=== PATIENT | male | born 1985 | race African-American/Black ===

== ENCOUNTER 2018-02-25 09:30 | Inpatient (IN) | payer MEDICAID, OTHER, SELFPAY ==
[~2018-02-25] VITALS: Ht 177.8 cm; Wt 73.0 kg
[~2018-02-25 09:30] MED LIST: OLAN10TA3 PO
[2018-02-25] MEDS ORDERED: HALOPERIDOL LACTATE 5 MG/ML VIAL ONE (09:34)
[2018-02-25] MEDS ORDERED: LORazepam 2 MG/ML VIAL ONE (09:34)
[2018-02-25] MEDS ORDERED: DiphenhydrAMINE HCL 50 MG/ML VIAL ONE (09:34)
[2018-02-25] MEDS ORDERED: HALOPERIDOL LACTATE 5 MG/ML VIAL IM ONE ×2 (09:35→16:15)
[2018-02-25] MEDS ORDERED: DiphenhydrAMINE HCL 50 MG/ML VIAL IM ONE ×2 (09:35→16:15)
[2018-02-25] MEDS ORDERED: LORazepam 2 MG/ML VIAL IM ONE ×2 (09:35→16:15)
[2018-02-25 10:02] LABS: BASOPHILS % (AUTO) 1.1 % (0.0-2.0); EOSINOPHILS % (AUTO) 0.4 % (1.0-6.0); HEMATOCRIT 39.5 % (41-53); HEMOGLOBIN 13.2 g/dL (13.5-17.5); LYMPHOCYTES # (AUTO) 1.6 K/uL (1.0-4.8); LYMPHOCYTES % (AUTO) 22.8 % (22.0-44.0); MEAN CORPUSCULAR HEMOGLOBIN 28.9 pg (26.0-34.0); MEAN CORPUSCULAR HGB CONC 33.4 G/dL (31.0-37.0); MEAN CORPUSCULAR VOLUME 87 fL (80-100); MONOCYTES # (AUTO) 0.8 K/uL (0.1-1.0); MONOCYTES % (AUTO) 11.2 % (2.0-9.0); NEUTROPHILS # (AUTO) 4.6 K/uL (1.8-7.7); NEUTROPHILS % (AUTO) 64.5 % (40.0-70.0); PLATELET COUNT (AUTO) 263 K/uL (150-450); RED BLOOD CELL COUNT(AUTO) 4.56 MIL/uL (4.50-5.90); RED CELL DISTRIBUTION WIDTH 13.4 % (11.5-14.5)
[2018-02-25 10:09] LABS: ANION GAP 17 mmol/L (8-16); CALCIUM, TOTAL 9.1 mg/dL (8.8-10.5); CARBON DIOXIDE 19 mmol/L (22-29); CHLORIDE 100 mmol/L (98-107); CREATININE 1.78 mg/dL (0.60-1.30); GLOMERULAR FILTR. RATE CALC 55 mL/min (>60); GLUCOSE,RANDOM 131 mg/dL (70-110); SODIUM SERUM 136 mmol/L (136-145); UREA NITROGEN, BLOOD 9 mg/dL (7-18)
[2018-02-25 10:15] LABS: ALANINE AMINOTRANSFERASE 34 U/L (12-78); ALBUMIN 4.3 g/dL (3.4-5.0); ALKALINE PHOSPHATASE 103 U/L (46-116); ASPARTATE AMINOTRANSFERASE 52 U/L (15-37); BILIRUBIN,TOTAL 0.5 mg/dL (0.1-1.0); TOTAL PROTEIN, SERUM 7.2 g/dL (6.4-8.2)
[2018-02-25 19:08] VITALS: BP 127/67
[2018-02-26 02:30] VITALS: BP 111/68
[2018-02-26 08:09] VITALS: BP 138/77
[2018-02-26 08:24] LABS: BASOPHILS % (AUTO) 0.4 % (0.0-2.0); EOSINOPHILS % (AUTO) 1.6 % (1.0-6.0); HEMATOCRIT 41.2 % (41-53); LYMPHOCYTES # (AUTO) 1.3 K/uL (1.0-4.8); LYMPHOCYTES % (AUTO) 19.4 % (22.0-44.0); MEAN CORPUSCULAR HGB CONC 33.9 G/dL (31.0-37.0); MEAN CORPUSCULAR VOLUME 86 fL (80-100); MONOCYTES # (AUTO) 0.7 K/uL (0.1-1.0); MONOCYTES % (AUTO) 10.3 % (2.0-9.0); NEUTROPHILS # (AUTO) 4.6 K/uL (1.8-7.7); NEUTROPHILS % (AUTO) 68.3 % (40.0-70.0); PLATELET COUNT (AUTO) 249 K/uL (150-450); RED BLOOD CELL COUNT(AUTO) 4.81 MIL/uL (4.50-5.90); RED CELL DISTRIBUTION WIDTH 13.2 % (11.5-14.5)
[2018-02-26 09:13] LABS: ALANINE AMINOTRANSFERASE 37 U/L (12-78); ALBUMIN 4.1 g/dL (3.4-5.0); ALKALINE PHOSPHATASE 94 U/L (46-116); ANION GAP 11 mmol/L (8-16); ASPARTATE AMINOTRANSFERASE 126 U/L (15-37); BILIRUBIN,TOTAL 0.5 mg/dL (0.1-1.0); CALCIUM, TOTAL 8.9 mg/dL (8.8-10.5); CARBON DIOXIDE 24 mmol/L (22-29); CHLORIDE 104 mmol/L (98-107); CREATININE 1.08 mg/dL (0.60-1.30); GLOMERULAR FILTR. RATE CALC > 60 mL/min (>60); GLUCOSE,RANDOM 84 mg/dL (70-110); POTASSIUM 4.3 mmol/L (3.5-5.1); SODIUM SERUM 139 mmol/L (136-145); THYROID STIMULATING HORMONE 1.01 uIU/mL (0.36-3.74); TOTAL PROTEIN, SERUM 7.2 g/dL (6.4-8.2); UREA NITROGEN, BLOOD 10 mg/dL (7-18)
[2018-02-26] MEDS: RisperiDONE 2 MG TABLET PO SCH ×2 (09:49→17:12)
[2018-02-26 16:10] VITALS: BP 130/70
[2018-02-26] MEDS: HALOPERIDOL 5 MG TABLET PO PRN (17:12)
[2018-02-26] MEDS: LORazepam 2 MG TABLET PO PRN (17:12)
[2018-02-27 03:56] VITALS: BP 113/72
[2018-02-27 08:44] VITALS: BP 136/75
[2018-02-27] MEDS: RisperiDONE 2 MG TABLET PO SCH ×2 (08:47→17:16)
[2018-02-27] MEDS: LORazepam 2 MG TABLET PO PRN ×2 (08:47→20:12)
[2018-02-27] MEDS: HALOPERIDOL 5 MG TABLET PO PRN (08:47)
[2018-02-27 16:00] VITALS: BP 116/68
[2018-02-27] MEDS: ZOLPIDEM TARTRATE 10 MG TABLET PO PRN (20:12)
[2018-02-28 04:42] VITALS: BP 123/66
[2018-02-28 08:08] VITALS: BP 136/87
[2018-02-28] MEDS: RisperiDONE 2 MG TABLET PO SCH ×2 (09:19→17:11)
[2018-02-28] MEDS: LORazepam 2 MG TABLET PO PRN (14:29)
[2018-02-28 16:00] VITALS: BP 116/73
[2018-02-28] MEDS: ZOLPIDEM TARTRATE 10 MG TABLET PO PRN (20:38)
[2018-03-01 02:28] VITALS: BP 120/75
[2018-03-01] MEDS: LORazepam 2 MG TABLET PO PRN (05:20)
[2018-03-01 08:00] VITALS: BP 129/69
[2018-03-01] MEDS: RisperiDONE 2 MG TABLET PO SCH (08:44)
[2018-03-01] MEDS ORDERED: RISP2 PO ×2 (09:59→13:25)
== END 2018-03-01 14:00 | disposition home or self-care (01) | DRG 750 ==
LOC: EMS 09:31 → B3A 16:02
PROVIDERS: ADMIT Psychiatry & Neurology Child & Adolescent Psychiatry; ATTEND Psychiatry & Neurology Child & Adolescent Psychiatry
DX: F25.0 Schizoaffective disorder, bipolar type (principal); Z78.1 Physical restraint status; R45.851 Suicidal ideations; E86.0 Dehydration; F17.210 Nicotine dependence, cigarettes, uncomplicated; F12.90 Cannabis use, unspecified, uncomplicated; F41.9 Anxiety disorder, unspecified; Z91.19 Patient's noncompliance with other medical treatment and regimen; Z79.899 Other long term (current) drug therapy
CPT/HCPCS: 83036; 84439; 84443; 87081; 96372; 99291; G0480; J1200; J1630; J2060

== ENCOUNTER 2018-03-15 11:07 | Emergency (ER) | payer MEDICAID, OTHER ==
[~2018-03-15] VITALS: Ht 177.8 cm; Wt 63.6 kg
[~2018-03-15 11:07] MED LIST changes: -OLAN10TA3 PO; +RISP2 PO
[2018-03-15] MEDS ORDERED: DOXYCYCLINE HYCLATE 100 MG CAPSULE PO ONE (12:15)
[2018-03-15] MEDS ORDERED: LIDOCAINE HCL/PF 1% 2 ML VIAL IM ONE (12:15)
[2018-03-15] MEDS ORDERED: BUPIVACAINE HCL/PF 0.25% 10 ML VIAL INJ ONE (12:15)
[2018-03-15] MEDS ORDERED: CefTRIAXone SODIUM 1 GM/VIAL IM ONE (12:15)
[2018-03-15 12:20] VITALS: BP 157/82
== END 2018-03-15 13:24 | disposition home or self-care (01) ==
LOC: EMS 11:08
DX: K13.0 Diseases of lips (principal); L03.012 Cellulitis of left finger; L02.512 Cutaneous abscess of left hand; F17.210 Nicotine dependence, cigarettes, uncomplicated; F12.90 Cannabis use, unspecified, uncomplicated; Z88.6 Allergy status to analgesic agent
CPT/HCPCS: 10061; 96372; 99284; 99406; J0696; J3490 ×2

== ENCOUNTER 2018-03-22 14:28 | Emergency (ER) | payer OTHER ==
[~2018-03-22] VITALS: Ht 170.2 cm; Wt 61.4 kg
[2018-03-22 14:29] VITALS: BP 133/77
== END 2018-03-22 18:02 | disposition left against medical advice (07) ==
LOC: EMS 14:29
DX: M25.512 Pain in left shoulder (principal); F17.210 Nicotine dependence, cigarettes, uncomplicated; F12.90 Cannabis use, unspecified, uncomplicated; Z53.21 Procedure and treatment not carried out due to patient leaving prior to being seen by health care provider

== ENCOUNTER 2018-03-26 10:23 | Inpatient (IN) | payer MEDICAID, OTHER ==
[~2018-03-26] VITALS: Ht 177.8 cm; Wt 64.5 kg
[2018-03-26 11:15] LABS: BASOPHILS % (AUTO) 1.2 % (0.0-2.0); EOSINOPHILS % (AUTO) 1.1 % (1.0-6.0); HEMATOCRIT 35.7 % (41-53); HEMOGLOBIN 12.2 g/dL (13.5-17.5); LYMPHOCYTES # (AUTO) 1.9 K/uL (1.0-4.8); LYMPHOCYTES % (AUTO) 29.8 % (22.0-44.0); MEAN CORPUSCULAR HEMOGLOBIN 29.7 pg (26.0-34.0); MEAN CORPUSCULAR HGB CONC 34.2 G/dL (31.0-37.0); MEAN CORPUSCULAR VOLUME 87 fL (80-100); MONOCYTES # (AUTO) 0.5 K/uL (0.1-1.0); MONOCYTES % (AUTO) 8.3 % (2.0-9.0); NEUTROPHILS # (AUTO) 3.7 K/uL (1.8-7.7); NEUTROPHILS % (AUTO) 59.6 % (40.0-70.0); PLATELET COUNT (AUTO) 300 K/uL (150-450); RED BLOOD CELL COUNT(AUTO) 4.11 MIL/uL (4.50-5.90); RED CELL DISTRIBUTION WIDTH 14.2 % (11.5-14.5)
[2018-03-26 11:26] LABS: ANION GAP 10 mmol/L (8-16); CALCIUM, TOTAL 8.6 mg/dL (8.8-10.5); CARBON DIOXIDE 24 mmol/L (22-29); CHLORIDE 103 mmol/L (98-107); CREATININE 0.81 mg/dL (0.60-1.30); GLOMERULAR FILTR. RATE CALC > 60 mL/min (>60); GLUCOSE,RANDOM 119 mg/dL (70-110); SODIUM SERUM 137 mmol/L (136-145); UREA NITROGEN, BLOOD 6 mg/dL (7-18)
[2018-03-26] MEDS ORDERED: LORazepam 2 MG TABLET PO ONE (11:30)
[2018-03-26] MEDS ORDERED: HALOPERIDOL 5 MG TABLET PO ONE (11:30)
[2018-03-26 11:31] LABS: AMPHET/METH SCREEN,URINE NEGATIVE (NEGATIVE); BARBITURATE SCREEN, URINE NEGATIVE (NEGATIVE); BENZODIAZEPINES SCREEN,URINE NEGATIVE (NEGATIVE); CANNABINOID SCREEN,URINE POSITIVE (NEGATIVE); COCAINE SCREEN,URINE NEGATIVE (NEGATIVE); METHADONE SCREEN, URINE NEGATIVE (NEGATIVE); OPIATE SCREEN,URINE NEGATIVE (NEGATIVE); PHENCYCLIDINE SCREEN,URINE NEGATIVE (NEGATIVE)
[2018-03-26 11:31] LABS: ALANINE AMINOTRANSFERASE 36 U/L (12-78); ALBUMIN 3.6 g/dL (3.4-5.0); ALKALINE PHOSPHATASE 136 U/L (46-116); ASPARTATE AMINOTRANSFERASE 45 U/L (15-37); BILIRUBIN,TOTAL 0.2 mg/dL (0.1-1.0); TOTAL PROTEIN, SERUM 7.1 g/dL (6.4-8.2)
[2018-03-26] MEDS ORDERED: HALOPERIDOL 5 MG TABLET PO PRN (11:45)
[2018-03-26 13:29] LABS: APPEARANCE,URINE CLEAR (CLEAR); BILIRUBIN,URINE NEGATIVE (NEGATIVE); GLUCOSE, URINE (UA) NEGATIVE (NEGATIVE); KETONES,URINE NEGATIVE (NEGATIVE); LEUKOCYTE ESTERASE ,URINE NEGATIVE (NEGATIVE); NITRATE,URINE NEGATIVE (NEGATIVE); OCCULT BLOOD,URINE NEGATIVE (NEGATIVE); PROTEIN,URINE NEGATIVE (NEGATIVE); UROBILINOGEN,URINE 0.2 mg/dL (<=1.0)
[2018-03-27 07:31] LABS: BASOPHILS % (AUTO) 0.6 % (0.0-2.0); EOSINOPHILS % (AUTO) 1.2 % (1.0-6.0); HEMATOCRIT 37.7 % (41-53); HEMOGLOBIN 12.7 g/dL (13.5-17.5); LYMPHOCYTES # (AUTO) 1.7 K/uL (1.0-4.8); LYMPHOCYTES % (AUTO) 29.5 % (22.0-44.0); MEAN CORPUSCULAR HEMOGLOBIN 29.4 pg (26.0-34.0); MEAN CORPUSCULAR HGB CONC 33.6 G/dL (31.0-37.0); MEAN CORPUSCULAR VOLUME 88 fL (80-100); MONOCYTES # (AUTO) 0.7 K/uL (0.1-1.0); MONOCYTES % (AUTO) 12.8 % (2.0-9.0); NEUTROPHILS # (AUTO) 3.2 K/uL (1.8-7.7); NEUTROPHILS % (AUTO) 55.9 % (40.0-70.0); PLATELET COUNT (AUTO) 295 K/uL (150-450); RED BLOOD CELL COUNT(AUTO) 4.31 MIL/uL (4.50-5.90); RED CELL DISTRIBUTION WIDTH 14.4 % (11.5-14.5)
[2018-03-27 07:55] LABS: ALANINE AMINOTRANSFERASE 32 U/L (12-78); ALBUMIN 3.6 g/dL (3.4-5.0); ALKALINE PHOSPHATASE 129 U/L (46-116); ANION GAP 6 mmol/L (8-16); ASPARTATE AMINOTRANSFERASE 33 U/L (15-37); BILIRUBIN,TOTAL 0.5 mg/dL (0.1-1.0); CALCIUM, TOTAL 8.6 mg/dL (8.8-10.5); CARBON DIOXIDE 30 mmol/L (22-29); CHLORIDE 98 mmol/L (98-107); CREATININE 0.71 mg/dL (0.60-1.30); FREE T4 (FREE THYROXINE) 0.83 ng/dL (0.76-1.46); GLOMERULAR FILTR. RATE CALC > 60 mL/min (>60); GLUCOSE,RANDOM 96 mg/dL (70-110); POTASSIUM 4.5 mmol/L (3.5-5.1); SODIUM SERUM 134 mmol/L (136-145); THYROID STIMULATING HORMONE 1.18 uIU/mL (0.36-3.74); TOTAL PROTEIN, SERUM 6.9 g/dL (6.4-8.2); UREA NITROGEN, BLOOD 9 mg/dL (7-18)
[2018-03-27 14:22] VITALS: BP 132/69
[2018-03-27] MEDS: LORazepam 2 MG TABLET PO PRN ×2 (15:04→22:31)
[2018-03-27 16:00] VITALS: BP 126/76
[2018-03-27] MEDS: ZOLPIDEM TARTRATE 10 MG TABLET PO PRN (20:49)
[2018-03-28 01:26] VITALS: BP 132/84
[2018-03-28 08:12] VITALS: BP 129/78
[2018-03-28] MEDS: LORazepam 2 MG TABLET PO PRN ×2 (09:05→16:46)
[2018-03-28] MEDS: RisperiDONE 2 MG TABLET PO SCH ×2 (09:28→16:46)
[2018-03-28 16:00] VITALS: BP 123/65
[2018-03-28] MEDS: ZOLPIDEM TARTRATE 10 MG TABLET PO PRN (21:11)
[2018-03-29 01:59] VITALS: BP 135/83
[2018-03-29 08:09] VITALS: BP 138/87
[2018-03-29] MEDS: RisperiDONE 2 MG TABLET PO SCH (10:11)
== END 2018-03-29 13:30 | disposition home or self-care (01) | DRG 750 ==
LOC: EMS 10:25 → B3A 03-27 06:30 → EMS 03-27 12:35 → B3A 03-27 15:13
PROVIDERS: ADMIT Psychiatry & Neurology Child & Adolescent Psychiatry; ATTEND Psychiatry & Neurology Child & Adolescent Psychiatry
DX: F25.9 Schizoaffective disorder, unspecified (principal); Z91.14 Patient's other noncompliance with medication regimen; I10 Essential (primary) hypertension; D64.9 Anemia, unspecified; F12.90 Cannabis use, unspecified, uncomplicated; F19.20 Other psychoactive substance dependence, uncomplicated; F17.210 Nicotine dependence, cigarettes, uncomplicated; Y90.0 Blood alcohol level of less than 20 mg/100 ml; F15.90 Other stimulant use, unspecified, uncomplicated; Z81.8 Family history of other mental and behavioral disorders; Z88.6 Allergy status to analgesic agent; Z79.899 Other long term (current) drug therapy; Z72.89 Other problems related to lifestyle
CPT/HCPCS: 84439; 84443; 87081; 99285; G0480

== ENCOUNTER 2019-02-25 07:53 | Inpatient (IN) | payer MEDICAID, OTHER ==
[~2019-02-25] VITALS: Ht 180.3 cm; Wt 63.5 kg
[2019-02-25] VITALS (7 sets, daily range): BP systolic 125–140; BP diastolic 86–95
[2019-02-25 08:28] LABS: BASOPHILS % (AUTO) 1.4 % (0.0-2.0); EOSINOPHILS % (AUTO) 0.9 % (1.0-6.0); HEMATOCRIT 37.6 % (41-53); HEMOGLOBIN 12.2 g/dL (13.5-17.5); LYMPHOCYTES # (AUTO) 1.7 K/uL (1.0-4.8); LYMPHOCYTES % (AUTO) 34.4 % (22.0-44.0); MEAN CORPUSCULAR HEMOGLOBIN 29.9 pg (26.0-34.0); MEAN CORPUSCULAR HGB CONC 32.5 G/dL (31.0-37.0); MEAN CORPUSCULAR VOLUME 92 fL (80-100); MONOCYTES # (AUTO) 0.4 K/uL (0.1-1.0); MONOCYTES % (AUTO) 7.7 % (2.0-9.0); NEUTROPHILS # (AUTO) 2.7 K/uL (1.8-7.7); NEUTROPHILS % (AUTO) 55.6 % (40.0-70.0); PLATELET COUNT (AUTO) 349 K/uL (150-450); RED BLOOD CELL COUNT(AUTO) 4.09 MIL/uL (4.50-5.90); RED CELL DISTRIBUTION WIDTH 14.6 % (11.5-14.5)
[2019-02-25 08:38] LABS: ANION GAP 13 mmol/L (8-16); CALCIUM, TOTAL 8.2 mg/dL (8.8-10.5); CARBON DIOXIDE 23 mmol/L (22-29); CHLORIDE 103 mmol/L (98-107); CREATININE 0.91 mg/dL (0.60-1.30); GLOMERULAR FILTR. RATE CALC > 60 mL/min (>60); GLUCOSE,RANDOM 88 mg/dL (70-110); POTASSIUM 3.7 mmol/L (3.5-5.1); SODIUM SERUM 139 mmol/L (136-145); UREA NITROGEN, BLOOD 7 mg/dL (7-18)
[2019-02-25 08:38] LABS: AMPHET/METH SCREEN,URINE NEGATIVE (NEGATIVE); BARBITURATE SCREEN, URINE NEGATIVE (NEGATIVE); BENZODIAZEPINES SCREEN,URINE NEGATIVE (NEGATIVE); CANNABINOID SCREEN,URINE POSITIVE (NEGATIVE); COCAINE SCREEN,URINE NEGATIVE (NEGATIVE); METHADONE SCREEN, URINE NEGATIVE (NEGATIVE); OPIATE SCREEN,URINE NEGATIVE (NEGATIVE)
[2019-02-25 08:39] LABS: PHENCYCLIDINE SCREEN,URINE NEGATIVE (NEGATIVE)
[2019-02-25 08:43] LABS: ALANINE AMINOTRANSFERASE 95 U/L (12-78); ALKALINE PHOSPHATASE 84 U/L (46-116); ASPARTATE AMINOTRANSFERASE 86 U/L (15-37); BILIRUBIN,TOTAL 0.3 mg/dL (0.1-1.0)
[2019-02-25] MEDS ORDERED: GuaiFENesin/D-METHORPHAN [SUGAR-FREE] 200-20MG/10 ML SYRUP UDCUP PO PRN (10:45)
[2019-02-25] MEDS ORDERED: CYANOCOBALAMIN 1,000 MCG/ML VIAL IM ONE (10:45)
[2019-02-25] MEDS ORDERED: TUBERCULIN, PURIFIED PROTEIN DERIVATIVE 5 TU/0.1 ML SYRINGE ID ONE (10:45)
[2019-02-25] MEDS ORDERED: MAG HYDROX/AL HYDROX/SIMETH ES 30 ML SUSPENSION UDCUP PO PRN (10:45)
[2019-02-25] MEDS ORDERED: MAGNESIUM HYDROXIDE SUSPENSION 30 ML UDCUP PO PRN (10:45)
[2019-02-25] MEDS ORDERED: PROMETHAZINE HCL 25 MG TABLET PO PRN (10:45)
[2019-02-25] MEDS ORDERED: ACETAMINOPHEN 325 MG TABLET PO PRN (10:45)
[2019-02-25] MEDS ORDERED: HydrOXYzine PAMOATE 50 MG CAPSULE PO PRN (10:45)
[2019-02-25] MEDS ORDERED: LORazepam 2 MG TABLET PO PRN (10:45)
[2019-02-25] MEDS ORDERED: LOPERAMIDE HCL 2 MG CAPSULE PO PRN ×2 (10:45)
[2019-02-25] MEDS ORDERED: OLANZapine 5 MG RAPDIS TABLET PO PRN (10:45)
[2019-02-25] MEDS: LORazepam 2 MG TABLET PO PRN (16:41)
[2019-02-25] MEDS: THIAMINE HCL 100 MG TABLET PO SCH (16:41)
[2019-02-25] MEDS: ZOLPIDEM TARTRATE 10 MG TABLET PO PRN (20:24)
[2019-02-25] MEDS ORDERED: OLANZapine 5 MG RAPDIS TABLET PO SCH (21:00)
[2019-02-26 02:55] VITALS: BP 126/78
[2019-02-26 03:07] VITALS: BP 126/78
[2019-02-26] MEDS ORDERED: LORazepam 2 MG TABLET PO PRN (07:00)
[2019-02-26 07:08] VITALS: BP 132/97
[2019-02-26 08:14] VITALS: BP 140/82
[2019-02-26] MEDS: THIAMINE HCL 100 MG TABLET PO SCH ×2 (08:14→16:06)
[2019-02-26] MEDS: FOLIC ACID 1 MG TABLET PO SCH (08:14)
[2019-02-26] MEDS: LORazepam 2 MG TABLET PO SCH ×4 (08:14→20:20)
[2019-02-26] MEDS: MULTIVITAMINS WITH MINERALS, THERAPEUTIC TABLET PO SCH (08:14)
[2019-02-26] MEDS: NALTREXONE HCL 50 MG TABLET PO SCH (08:14)
[2019-02-26 08:30] LABS: HEMOGLOBIN A1C 5.8 % (4.5-6.2)
[2019-02-26 09:19] LABS: ALANINE AMINOTRANSFERASE 75 U/L (12-78); ALBUMIN 3.1 g/dL (3.4-5.0); ALKALINE PHOSPHATASE 67 U/L (46-116); ANION GAP 8 mmol/L (8-16); ASPARTATE AMINOTRANSFERASE 59 U/L (15-37); BILIRUBIN,TOTAL 0.6 mg/dL (0.1-1.0); CALCIUM, TOTAL 8.6 mg/dL (8.8-10.5); CARBON DIOXIDE 29 mmol/L (22-29); CHLORIDE 104 mmol/L (98-107); CHOL/HDL RATIO 1.7 (4.2-7.3); CHOLESTEROL 144 mg/dL (131-200); CREATININE 0.68 mg/dL (0.60-1.30); FREE T4 (FREE THYROXINE) 0.89 ng/dL (0.76-1.46); GLOMERULAR FILTR. RATE CALC > 60 mL/min (>60); GLUCOSE,RANDOM 72 mg/dL (70-110); HDL CHOLESTEROL 85 mg/dL (40-60); LDL CHOL (CALC.) 53 mg/dL (0-130); POTASSIUM 3.4 mmol/L (3.5-5.1); SODIUM SERUM 141 mmol/L (136-145); THYROID STIMULATING HORMONE 1.72 uIU/mL (0.36-3.74); TOTAL PROTEIN, SERUM 5.8 g/dL (6.4-8.2); TRIGLYCERIDES 32 mg/dL (15-150); UREA NITROGEN, BLOOD 7 mg/dL (7-18)
[2019-02-26 11:00] VITALS: BP 130/69
[2019-02-26] MEDS ORDERED: PALIPERIDONE PALMITATE 234 MG/1.5 ML SYRINGE IM ONE (15:15)
[2019-02-26 16:00] VITALS: BP 128/74
[2019-02-26] MEDS: PALIPERIDONE 3 MG ER TABLET PO SCH (20:20)
[2019-02-27 00:22] VITALS: BP 142/92
[2019-02-27] MEDS: ZOLPIDEM TARTRATE 10 MG TABLET PO PRN (03:41)
[2019-02-27 08:06] VITALS: BP 131/82
[2019-02-27] MEDS: THIAMINE HCL 100 MG TABLET PO SCH ×2 (08:11→16:17)
[2019-02-27] MEDS: LORazepam 2 MG TABLET PO SCH ×4 (08:11→20:27)
[2019-02-27] MEDS: MULTIVITAMINS WITH MINERALS, THERAPEUTIC TABLET PO SCH (08:11)
[2019-02-27] MEDS: NALTREXONE HCL 50 MG TABLET PO SCH (08:11)
[2019-02-27] MEDS: FOLIC ACID 1 MG TABLET PO SCH (08:13)
[2019-02-27] MEDS ORDERED: POTASSIUM CHLORIDE 20 MEQ ER TABLET PO ONE (09:00)
[2019-02-27] MEDS ORDERED: NICOTINE 14 MG/24 HOUR PATCH TD PRN (16:00)
[2019-02-27 16:01] VITALS: BP 131/82
[2019-02-27 16:03] VITALS: BP 127/83
[2019-02-27] MEDS: PALIPERIDONE 3 MG ER TABLET PO PRN (18:09)
[2019-02-27] MEDS: PALIPERIDONE 3 MG ER TABLET PO SCH (20:27)
[2019-02-28 00:03] VITALS: BP 127/79
[2019-02-28] MEDS: ZOLPIDEM TARTRATE 10 MG TABLET PO PRN ×2 (00:07→20:24)
[2019-02-28 02:05] VITALS: BP 130/79
[2019-02-28] MEDS ORDERED: LORazepam 1 MG TABLET PO PRN (07:00)
[2019-02-28 07:47] LABS: ANION GAP 10 mmol/L (8-16); CALCIUM, TOTAL 9.6 mg/dL (8.8-10.5); CARBON DIOXIDE 30 mmol/L (22-29); CHLORIDE 101 mmol/L (98-107); CREATININE 0.75 mg/dL (0.60-1.30); GLOMERULAR FILTR. RATE CALC > 60 mL/min (>60); GLUCOSE,RANDOM 113 mg/dL (70-110); POTASSIUM 4.3 mmol/L (3.5-5.1); SODIUM SERUM 141 mmol/L (136-145); UREA NITROGEN, BLOOD 10 mg/dL (7-18)
[2019-02-28 08:00] VITALS: BP 131/79
[2019-02-28] MEDS: NALTREXONE HCL 50 MG TABLET PO SCH (08:17)
[2019-02-28] MEDS: MULTIVITAMINS WITH MINERALS, THERAPEUTIC TABLET PO SCH (08:17)
[2019-02-28] MEDS: THIAMINE HCL 100 MG TABLET PO SCH ×2 (08:17→16:40)
[2019-02-28] MEDS: LORazepam 1 MG TABLET PO SCH ×4 (08:17→20:24)
[2019-02-28] MEDS: FOLIC ACID 1 MG TABLET PO SCH (08:17)
[2019-02-28 08:32] VITALS: BP 131/79
[2019-02-28 16:01] VITALS: BP 131/83
[2019-02-28 16:06] VITALS: BP 131/83
[2019-02-28] MEDS: PALIPERIDONE 3 MG ER TABLET PO SCH (20:23)
[2019-03-01 06:52] VITALS: BP 139/87
[2019-03-01] MEDS ORDERED: LORazepam 1 MG TABLET PO PRN (07:00)
[2019-03-01 07:11] VITALS: BP 139/87
[2019-03-01] MEDS: FOLIC ACID 1 MG TABLET PO SCH (08:17)
[2019-03-01] MEDS: MULTIVITAMINS WITH MINERALS, THERAPEUTIC TABLET PO SCH (08:17)
[2019-03-01] MEDS: THIAMINE HCL 100 MG TABLET PO SCH ×2 (08:17→16:42)
[2019-03-01] MEDS: NALTREXONE HCL 50 MG TABLET PO SCH (08:17)
[2019-03-01 08:23] VITALS: BP 134/74
[2019-03-01 11:35] VITALS: BP 144/80
[2019-03-01] MEDS: LORazepam 2 MG TABLET PO PRN (16:42)
[2019-03-01] MEDS: PALIPERIDONE 3 MG ER TABLET PO PRN (16:42)
[2019-03-01 17:10] VITALS: BP 124/84
[2019-03-01 17:51] VITALS: BP 124/84
[2019-03-01] MEDS: PALIPERIDONE 3 MG ER TABLET PO SCH (20:10)
[2019-03-02 00:54] VITALS: BP 131/77
[2019-03-02 00:55] VITALS: BP 131/77
[2019-03-02 08:21] VITALS: BP 117/68
[2019-03-02] MEDS: THIAMINE HCL 100 MG TABLET PO SCH (08:29)
[2019-03-02] MEDS: NALTREXONE HCL 50 MG TABLET PO SCH (08:29)
[2019-03-02] MEDS: FOLIC ACID 1 MG TABLET PO SCH (08:29)
[2019-03-02] MEDS: MULTIVITAMINS WITH MINERALS, THERAPEUTIC TABLET PO SCH (08:29)
[2019-03-02] MEDS ORDERED: PALIPERIDONE PALMITATE 156 MG/ML SYRINGE IM ONE (09:00)
[2019-03-02] MEDS ORDERED: MULT-1239 PO (13:32)
[2019-03-02] MEDS ORDERED: FOLI1 PO (13:32)
[2019-03-02] MEDS ORDERED: THIA100T67 PO (13:32)
[2019-03-02] MEDS ORDERED: PALI3 PO (13:32)
== END 2019-03-02 16:05 | disposition home or self-care (01) | DRG 750 ==
LOC: EMS 08:01 → B3A 14:37
PROVIDERS: ADMIT Psychiatry & Neurology Psychiatry; ATTEND Psychiatry & Neurology Psychiatry
DX: F20.0 Paranoid schizophrenia (principal); R45.850 Homicidal ideations; D64.9 Anemia, unspecified; F15.90 Other stimulant use, unspecified, uncomplicated; F14.90 Cocaine use, unspecified, uncomplicated; F10.10 Alcohol abuse, uncomplicated; J45.909 Unspecified asthma, uncomplicated; F12.90 Cannabis use, unspecified, uncomplicated; F17.210 Nicotine dependence, cigarettes, uncomplicated; Z82.5 Family history of asthma and other chronic lower respiratory diseases; Z91.19 Patient's noncompliance with other medical treatment and regimen
CPT/HCPCS: 80074; 83036; 84439; 84443; 86592; G0480; J3420